=== PATIENT | female | born 1970 | race Caucasian/White ===

== ENCOUNTER 2018-05-03 22:01 | Emergency (ER) | payer SELFPAY ==
[~2018-05-03] VITALS: Ht 167.6 cm; Wt 82.0 kg
[2018-05-04] MEDS ORDERED: ALBUTEROL (0.083%) 2.5MG/3ML NEB HHN STA (00:57)
[2018-05-04] MEDS ORDERED: IPRATROPIUM BROMIDE (0.02%) 0.5MG/2.5ML NEB HHN STA (00:57)
[2018-05-04 01:12] LABS: BASOPHILS % 1.3 % (0.0-2.0); EOSINOPHILS % 4.6 % (0.0-5.0); HEMATOCRIT. 38.8 % (36.0-48.0); HEMOGLOBIN. 13.4 g/dL (12.0-16.0); LYMPHOCYTES % 45.3 % (20.0-50.0); MEAN CORPUSCULAR VOLUME 89.7 fL (81.0-99.0); MEAN PLATELET VOLUME 7.9 fl (7.4-10.4); MONOCYTES % 8.1 % (2.0-8.0); NEUTROPHILS % 40.7 % (40.0-76.0); PLATELET 337 x1000/uL (130-400); RED BLOOD CELL COUNT 4.33 mill/uL (4.2-5.4); RED CELL DISTRIBUTION WIDTH 13.5 % (11.6-14.6)
[2018-05-04 01:20] LABS: CHLORIDE 106 mEq/L (98-107)
[2018-05-04 03:44] VITALS: BP 119/85
== END 2018-05-04 03:47 | disposition home or self-care (01) ==
LOC: EDBD 22:01 → ER 22:01
DX: R06.02 Shortness of breath (principal); R11.10 Vomiting, unspecified; R07.9 Chest pain, unspecified; I10 Essential (primary) hypertension
CPT/HCPCS: 36415; 71045; 80053; 83880; 84484; 85025; 93005; 94640; 99285; J7611; Z7610